=== PATIENT | male | born 1980 | race Caucasian/White ===

== ENCOUNTER 2020-10-22 16:29 | Emergency (ER) | payer OTHER, BC ==
[~2020-10-22] VITALS: Ht 190.5 cm; Wt 150.0 kg
[2020-10-22 16:30] VITALS: BP 136/79
[2020-10-22] MEDS ORDERED: ceFAZolin SOD 2 GM in IV 1 EA IV ONE (17:20)
[2020-10-22] MEDS ORDERED: BOOSTRIX/ADACEL VACCINE (DIPHTH/PERTUSS/ACELL/TETANUS) 0.5ML SYR IM ONE (17:35)
--- NOTE | 2020-10-22 17:45 | REP ---
INDICATION: traumatic amputation ? proximal fracture ring finger. COMPARISON: None. TECHNIQUE: Four views FINDINGS: Amputation of the distal phalanx of the 4th digit at the shaft and distal tuft with bone fragments imbedded in the residual soft tissue and stripping of the distal pad of the finger completely. Exposed bone. No other fracture or focal abnormality. IMPRESSION: 1. Traumatic amputation of the distal tuft and portion of the shaft of the distal phalanx of the 4th digit with some embedded bone fragments in the soft tissues remaining. Exposed bone and soft tissue loss of the distal pad of the finger. No other finding. <Electronically signed by Don Kendrick > 10/22/20 [id number]
[2020-10-22 18:07] LABS: BASO % 0.3 % (0.0-1.0); EOS # 0.1 10^3/uL (0.0-0.5); EOS % 1.1 % (0.0-3.0); HEMATOCRIT 47.3 % (42.0-52.0); HEMOGLOBIN 15.7 g/dl (13.5-17.5); LYMPH # 1.4 10^3/uL (1.5-5.0); LYMPH % 13.7 % (24.0-44.0); MEAN CORPUSCULAR HEMOGLOBIN 29.2 pg (27.0-33.0); MEAN CORPUSCULAR HGB CONC 33.2 g/dl (32.0-36.5); MEAN CORPUSCULAR VOLUME 87.9 fl (80.0-96.0); MONO # 0.5 10^3/uL (0.0-0.8); MONO % 5.4 % (2.0-8.0); NEUTROPHILS # 7.8 10^3/uL (1.5-8.5); NEUTROPHILS % 79.3 % (36.0-66.0); PLATELET COUNT, AUTOMATED 282 10^3/uL (150-450); RED BLOOD COUNT 5.38 10^6/uL (4.30-6.10); WHITE BLOOD COUNT 9.9 10^3/uL (4.0-10.0)
[2020-10-22 18:17] LABS: INR 0.89; PROTHROMBIN TIME 12.2 SECONDS (12.5-14.3)
[2020-10-22 18:18] LABS: PARTIAL THROMBOPLASTIN TIME 26.1 SECONDS (24.2-38.5)
[2020-10-22 18:41] LABS: RSV AMPLIFICATION NEGATIVE (NEGATIVE)
--- NOTE | 2020-10-22 18:53 | ED PDOC ---
Provider Note Orthopaedic Consult 39 y/o M, RHD with no PMHx p/w avulsion injury to R 4th digit. Pt. states ring got caught at work and noticed injury. Denies associated complaint. PMHx - none PSHx - N/a PE - Vital Signs Date Time Temp Pulse Resp B/P (MAP) Pulse Ox O2 Delivery O2 Flow Rate FiO2 10/22/20 17:20 10/22/20 16:30 98.7 89 18 136/79 (98) 99 Room Air Laboratory Tests 10/22/20 17:20: White Blood Count 9.9, Red Blood Count 5.38, Hemoglobin 15.7, Hematocrit 47.3, Mean Corpuscular Volume 87.9, Mean Corpuscular Hemoglobin 29.2, Mean Corpuscular Hemoglobin Concent 33.2, Red Cell Distribution Width 12.5, Platelet Count 282, Immature Granulocyte % (Auto) 0.2, Neutrophils (%) (Auto) 79.3H, Lymphocytes (%) (Auto) 13.7L, Monocytes (%) (Auto) 5.4, Eosinophils (%) (Auto) 1.1, Basophils (%) (Auto) 0.3, Neutrophils # (Auto) 7.8, Lymphocytes # (Auto) 1.4L, Monocytes # (Auto) 0.5, Eosinophils # (Auto) 0.1, Basophils # (Auto) 0.0, Nucleated Red Blood Cells % (auto) 0.0, Prothrombin Time 12.2, Prothromb Time International Ratio 0.89, Activated Partial Thromboplast Time 26.1 10/22/20 17:24: Coronavirus (COVID-19)(PCR) NEGATIVE, Influenza Type A (RT-PCR) NEGATIVE, Influenza Type B (RT-PCR) NEGATIVE, Respiratory Syncytial Virus (PCR) NEGATIVE AAOx 3 NC/AT RUE - + avulsion injury to R 4th digit @ DIP. volar tissue involved bone exposed decreased ext @ DIP cap refill brisk A/P - 39 yo M with avulsion injury to R DIP - Irrigation and Abx in ED - Dry sterile dressing to hand - will need definitve care via hand surgeon - case discussed with ED staff - f/u per hand specialist ANDRES SIERRA MD Oct 22, 2020 18:53
== END 2020-10-22 19:35 | disposition home or self-care (01) ==
LOC: M ED 16:29
DX: S68.624A Partial traumatic transphalangeal amputation of right ring finger, initial encounter (principal); W23.1XXA Caught, crushed, jammed, or pinched between stationary objects, initial encounter; Y92.9 Unspecified place or not applicable; Y93.9 Activity, unspecified; Y99.0 Civilian activity done for income or pay
CPT/HCPCS: 73140; 80047; 85025; 85610; 85730; 87631; 90471; 90715; 96365; 96366; 99283; J0690